=== PATIENT | male | born 1950 | race Caucasian/White ===

== ENCOUNTER 2019-01-21 09:43 | Day surgery (SDC) | payer OTHER ==
[2019-01-18 12:54] VITALS: BMI 29.3
[2019-01-21 10:21] LABS: BASO % 0.5 % (0-2.0); HEMATOCRIT 43.7 % (35.4-49); LYMPH % 27.7 % (8-40); MCH 28.2 pg (25.7-33.7); MCHC 34.3 g/dl (32.0-35.9); MEAN CELL VOLUME 82.1 fl (80-96); MEAN PLT VOLUME 9.6 fl (7.5-11.1); MONO % 7.4 % (3.8-10.2); NEUT % 61.4 % (42.8-82.8); PLATELET COUNT 160 K/MM3 (134-434); RBC 5.32 M/mm3 (4.00-5.60); RDW 15.3 % (11.9-15.9); WHITE BLOOD COUNT 7.6 K/mm3 (4.0-10.0)
[2019-01-21 10:58] VITALS: TEMP 98.6
[2019-01-21 11:11] LABS: INR 1.14 (0.83-1.09); PROTHROMBIN TIME (PATIENT) 13.5 SEC (9.7-13.0)
[2019-01-21 12:53] VITALS: BP 140/98; PULSE 87
== END 2019-01-21 12:50 | disposition home or self-care (01) ==
LOC: JRADIR 09:43
PROVIDERS: ATTEND Specialist
DX: Z53.8 Procedure and treatment not carried out for other reasons (principal)
CPT/HCPCS: 36415; 76536-TC; 85025; 85610